=== PATIENT | female | born 1970 | race Caucasian/White ===

== ENCOUNTER 2017-04-29 06:27 | Inpatient (IN) | payer BC ==
[2017-04-29] MEDS ORDERED: Prochlorperazine 10 MG in Sodium Chloride 0.9% 50 ML IV ONE (06:52)
[2017-04-29] MEDS ORDERED: Ketorolac 30 MG/ML SDV IVPUSH ONE (06:52)
[2017-04-29] MEDS ORDERED: Sodium Chloride 0.9% 10 ML Syringe FLUSH PRN (06:52)
[2017-04-29] MEDS ORDERED: LORazepam 2 MG/ML MDV IVPUSH ONE (06:53)
--- NOTE | 2017-04-29 06:59 | EDM.PDOC ---
[id number] Chief Complaint: Abdominal Pain Stated Complaint: ABD PAIN Time Seen by Provider: 04/29/17 06:50 - Related Data Allergies Allergy/AdvReac Type Severity Reaction Status Date / Time No Known Allergies Allergy Verified 04/29/17 06:52 Home Meds: Home Meds *Allergy Med 1 tab PO DAILY 04/29/17 [History] Albuterol [Ventolin HFA] 1 puff .XX ASDIRECTED PRN 04/29/17 [History] Calcium Carbonate [Calcium] 1,200 mg PO DAILY 04/29/17 [History] Cholecalciferol (Vitamin D3) [Vitamin D] 5,000 unit PO DAILY 04/29/17 [History] Cyanocobalamin (Vitamin B-12) [Vitamin B-12] 1 tab SL DAILY 04/29/17 [History] Multivitamin [Multivitamins] 1 tab PO DAILY 04/29/17 [History] [place]-3 Fatty Acids [Fish Oil] 1 tab PO DAILY 04/29/17 [History] Vitamin B Complex [B Complex] 1 each PO DAILY 04/29/17 [History] Course - Vital Signs Last Recorded V/S: Last Vital Signs Temp 37.9 C 04/29/17 15:30 Pulse 111 H 04/29/17 15:30 Resp 17 04/29/17 15:30 BP 123/72 04/29/17 15:30 Pulse Ox 91 L 04/29/17 15:30 - Orders/Labs/Meds Orders: Active Orders 24 hr Category Date Time Status Abdomen Pelvis wo Cont [CT] Stat Exams 04/29/17 07:02 Taken Sodium Chloride 0.9% [Saline Flush] Med 04/29/17 06:52 Active 10 ml FLUSH ASDIRECTED PRN Peripheral IV Insertion Adult [OM.PC] Routine Oth 04/29/17 06:52 Ordered Medication Orders Diphenhydramine HCl (Benadryl) 25 - 50 mg IV Q4H PRN PRN Reason: ITCHING Diphenhydramine HCl (Benadryl) 25 - 50 mg PO Q4H PRN PRN Reason: ITCHING Fentanyl (Sublimaze) 10 - 30 mcg IV Q1H PRN PRN Reason: PAIN Last Admin: 04/29/17 15:21 Dose: 30 mcg Admin: 04/29/17 14:09 Dose: 30 mcg Admin: 04/29/17 12:21 Dose: 30 mcg Admin: 04/29/17 11:05 Dose: 15 mcg Sodium Chloride (Normal Saline) 1,000 mls @ 125 mls/hr IV ASDIRECTED JOYCE Last Admin: 04/29/17 12:21 Dose: 125 mls/hr Morphine Sulfate (Morphine) 1 - 3 mg IV Q1H PRN PRN Reason: PAIN Last Admin: 04/29/17 10:38 Dose: 3 mg Nicotine (Habitrol) 14 mg TRDERM Q24H PRN PRN Reason: SMOKING CESSATION Ondansetron HCl (Zofran) 4 mg IV Q8H PRN PRN Reason: N/V Promethazine HCl (Phenergan) 12.5 - 25 mg IV Q8H PRN PRN Reason: N/V Scopolamine (Transderm-Scop) 1.5 mg TOP Q72H PRN PRN Reason: N/V Sodium Chloride (Saline Flush) 10 ml FLUSH ASDIRECTED PRN PRN Reason: Keep Vein Open Last Admin: 04/29/17 07:01 Dose: 10 ml Labs: Laboratory Tests 04/29/17 04/29/17 Range/Units 06:59 06:59 WBC 16.2 H (4.5-11.0) K/uL RBC 4.81 (3.30-5.50) M/uL Hgb 15.7 H (12.0-15.0) g/dL Hct 46.1 (36.0-48.0) % MCV 96 (80-98) fL MCH 33 H (27-31) pg MCHC 34 (32-36) % Plt Count 286 (150-400) K/uL Sodium 138 L (140-148) mmol/L Potassium 4.2 (3.6-5.2) mmol/L Chloride 104 (100-108) mmol/L Carbon Dioxide 23 (21-32) mmol/L Anion Gap 15.2 H (5.0-14.0) mmol/L BUN 13 (7-18) mg/dL Creatinine 0.8 (0.6-1.0) mg/dL Est Cr Clr Drug Dosing 94.01 mL/min Estimated GFR (MDRD) > 60 (>60) Glucose 174 H (74-106) mg/dL Calcium 9.1 (8.5-10.1) mg/dL Total Bilirubin 0.5 (0.2-1.0) mg/dL AST 25 (15-37) U/L ALT 31 (12-78) U/L Alkaline Phosphatase 127 H (46-116) U/L Total Protein 7.5 (6.4-8.2) g/dL Albumin 3.9 (3.4-5.0) g/dL Globulin 3.6 H (2.3-3.5) g/dL Albumin/Globulin Ratio 1.1 L (1.2-2.2) Lipase 145 (73-393) U/L Meds: Medications Generic Name Dose Route Start Last Admin Trade Name Freq PRN Reason Stop Dose Admin Diphenhydramine HCl 25 - 50 mg 04/29/17 10:37 Benadryl IV Q4H PRN ITCHING Diphenhydramine HCl 25 - 50 mg 04/29/17 10:38 Benadryl PO Q4H PRN ITCHING Fentanyl 10 - 30 mcg 04/29/17 10:39 04/29/17 15:21 Sublimaze IV 30 mcg Q1H PRN Administration PAIN Sodium Chloride 1,000 mls @ 125 mls/hr 04/29/17 10:15 04/29/17 12:21 Normal Saline IV 125 mls/hr ASDIRECTED JOYCE Administration Morphine Sulfate 1 - 3 mg 04/29/17 10:34 04/29/17 10:38 Morphine IV 3 mg Q1H PRN Administration PAIN Nicotine 14 mg 04/29/17 10:38 Habitrol TRDERM Q24H PRN SMOKING CESSATION Ondansetron HCl 4 mg 04/29/17 10:35 Zofran IV Q8H PRN N/V Promethazine HCl 12.5 - 25 mg 04/29/17 10:37 Phenergan IV Q8H PRN N/V Scopolamine 1.5 mg 04/29/17 10:36 Transderm-Scop TOP Q72H PRN N/V Sodium Chloride 10 ml 04/29/17 06:52 04/29/17 07:01 Saline Flush FLUSH 10 ml ASDIRECTED PRN Administration Keep Vein Open Discontinued Medications Generic Name Dose Route Start Last Admin Trade Name Freq PRN Reason Stop Dose Admin Bupivacaine HCl/Epinephrine Bitart Confirm 04/29/17 11:55 04/29/17 12:55 Marcaine 0.5%/Epinephrine 1:200,000 Administered 04/29/17 11:56 20 ml Dose Administration 50 ml .ROUTE .STK-MED ONE Cefazolin Sodium Confirm 04/29/17 17:04 Ancef Administered 04/29/17 17:05 Dose 2 gm .ROUTE .STK-MED ONE Dexamethasone Confirm 04/29/17 13:29 Dexamethasone Administered 04/29/17 13:30 Dose 4 mg .ROUTE .STK-MED ONE Fentanyl Confirm 04/29/17 13:28 Sublimaze Administered 04/29/17 13:29 Dose 250 mcg .ROUTE .STK-MED ONE Fentanyl Confirm 04/29/17 16:52 Sublimaze Administered 04/29/17 16:53 Dose 250 mcg .ROUTE .STK-MED ONE Fentanyl Confirm 04/29/17 18:08 Sublimaze Administered 04/29/17 18:09 Dose 250 mcg .ROUTE .STK-MED ONE Glycopyrrolate Confirm 04/29/17 13:29 Administered 04/29/17 13:30 Dose 1 mg .ROUTE .STK-MED ONE Hydromorphone HCl 0.5 mg 04/29/17 07:11 04/29/17 07:17 Dilaudid IVPUSH 04/29/17 07:12 0.5 mg ONETIME ONE Administration Hydromorphone HCl 0.5 mg 04/29/17 08:08 04/29/17 08:12 Dilaudid IVPUSH 04/29/17 08:09 0.5 mg ONETIME ONE Administration Prochlorperazine Edisylate 10 52 mls @ 150 mls/hr 04/29/17 06:52 04/29/17 07: 02 mg/ Sodium Chloride IV 04/29/17 07:12 150 mls/hr ONETIME ONE Administration Sodium Chloride 1,000 mls @ 250 mls/hr 04/29/17 07:00 04/29/17 07:00 Normal Saline IV 250 mls/hr ASDIRECTED JOYCE Administration Sodium Chloride Confirm 04/29/17 17:04 Normal Saline Administered 04/29/17 17:05 Dose 10 mls @ as directed .ROUTE .STK-MED ONE Lactated Ringer's Confirm 04/29/17 17:15 Ringers, Lactated Administered 04/29/17 17:16 Dose 1,000 mls @ as directed .ROUTE .STK-MED ONE Ketorolac Tromethamine 30 mg 04/29/17 06:52 04/29/17 07:00 Toradol IVPUSH 04/29/17 06:53 30 mg ONETIME ONE Administration Lidocaine HCl Confirm 04/29/17 11:59 04/29/17 12:56 Xylocaine 1% Administered 04/29/17 12:00 20 ml Dose Administration 20 ml .ROUTE .STK-MED ONE Lidocaine/Epinephrine Confirm 04/29/17 11:55 Xylocaine 1% With Epinephrine 1:100,000 Administered 04/29/17 11:56 Dose 50 ml .ROUTE .STK-MED ONE Lorazepam 1 mg 04/29/17 06:53 04/29/17 07:01 Ativan IVPUSH 04/29/17 06:54 1 mg ONETIME ONE Administration Neostigmine Methylsulfate Confirm 04/29/17 13:29 Neostigmine Administered 04/29/17 13:30 Dose 5 mg .ROUTE .STK-MED ONE Ondansetron HCl 4 mg 04/29/17 08:08 04/29/17 11:07 Zofran IVPUSH 04/29/17 08:09 Not Given ONETIME ONE Ondansetron HCl Confirm 04/29/17 13:29 Zofran Administered 04/29/17 13:30 Dose 4 mg .ROUTE .STK-MED ONE Propofol Confirm 04/29/17 13:29 Diprivan 20 Ml Administered 04/29/17 13:30 Dose 200 mg .ROUTE .STK-MED ONE Rocuronium [place] Confirm 04/29/17 13:29 Zemuron Administered 04/29/17 13:30 Dose 50 mg .ROUTE .STK-MED ONE Rocuronium [place] Confirm 04/29/17 18:05 Zemuron Administered 04/29/17 18:06 Dose 50 mg .ROUTE .STK-MED ONE Succinylcholine Chloride Confirm 04/29/17 13:29 Succinylcholine In Ns Pf Administered 04/29/17 13:30 Dose 200 mg .ROUTE .STK-MED ONE - Re-Assessments/Exams Free Text/Narrative Re-Assessment/Exam: 04/29/17 08:10 CT scan showed likely cholecystitis, white count is 16.2 and alkaline phosphatase is elevated at 175. Reexamination revealed right upper quadrant tenderness to palpation. Discussed her condition with Dr. Strong, surgeon on -call and he agreed to see the patient. 04/29/17 08:11 2 doses of Dilaudid 0.5 mg IV were given 30 minutes apart for pain control. She was also given 4 mg of Zofran IV. Departure - Departure Time of Disposition: 10:18 Disposition: Admitted As Inpatient 66 Condition: Fair Clinical Impression: Cholecystitis Abdominal pain Qualifiers: Abdominal location: generalized Qualified Code(s): R10.84 - Generalized abdominal pain - Discharge Information - My Orders Last 24 Hours: My Active Orders 04/29/17 06:52 Sodium Chloride 0.9% [Saline Flush] 10 ml FLUSH ASDIRECTED PRN Peripheral IV Insertion Adult [OM.PC] Routine - Assessment/Plan Last 24 Hours: My Active Orders 04/29/17 06:52 Sodium Chloride 0.9% [Saline Flush] 10 ml FLUSH ASDIRECTED PRN Peripheral IV Insertion Adult [OM.PC] Routine <Dagoberto Atkinson - Last Filed: 04/29/17 18:14> ED HPI GENERAL MEDICAL PROBLEM - General Source of Information: Reports: Patient, Old Records, RN Notes Reviewed History Limitations: Reports: Other (Severity of illness makes history taking difficult) - History of Present Illness INITIAL COMMENTS - FREE TEXT/NARRATIVE: Drove herself here Chief complaint: Right lower abdominal pain History of present illness: 47-year-old female, lives with her , history of gastric bypass 2002, abdominal hernia repair with mesh, and bowel obstruction treated by surgery. She's also passed renal stone spontaneously. Onset of pain sharp right lower abdomen with radiation to the back, 4 AM woke her up. Last bowel movement last night normal visualized genitourinary symptoms Bloating present as well as nausea, no vomiting yet. No fever No recent illnesses No recent medicine changes RLQ Pain Score (Numeric/FACES): 9 ED ROS GENERAL - Review of Systems Review Of Systems: See Below Constitutional: Reports: Other (Limited review of system due to physical distress, sleep disturbance) HEENT: Reports: No Symptoms Respiratory: Reports: Other (Pain makes her short of breath, deep breath aggravates the pain in her abdomen) Cardiovascular: Reports: No Symptoms Endocrine: Reports: No Symptoms GI/Abdominal: Reports: Abdominal Pain, Nausea. Denies: Constipation, Diarrhea, Vomiting : Reports: No Symptoms Musculoskeletal: Reports: No Symptoms Skin: Reports: No Symptoms Neurological: Reports: No Symptoms Psychiatric: Reports: Anxiety (Sleep disturbance) Hematologic/Lymphatic: Reports: No Symptoms Immunologic: Reports: No Symptoms ED EXAM, GI/ABD - Physical Exam Exam: See Below Exam Limited By: No Limitations General Appearance: Anxious, Severe Distress, Other (Very restless uncomfortable unable to sit stillElevated respiratory rate, other vital signs normal, grunting with pain and with breathing) Eyes: Bilateral: Normal Appearance Ears: Normal External Exam, Normal Canal, Hearing Grossly Normal Nose: Normal Inspection Throat/Mouth: Normal Inspection, Normal Oropharynx Head: Atraumatic, Normocephalic Neck: Normal Inspection, Non-Tender Respiratory/Chest: Other (Shallow breath sounds, increased rate, grunting). No : Rales, Rhonchi Cardiovascular: Normal Peripheral Pulses, Regular Rate, Rhythm GI/Abdominal: Normal Bowel Sounds, Soft, Tenderness (Right lower quadrant), Other (Obesity limits quality of examination). No: Guarding, Rebound, Rigidity Back Exam: Normal Inspection Extremities: Normal Inspection. No: Pedal Edema Neurological: Alert, Normal Cognition, Normal Gait Psychiatric: Anxious, Other (In considerable discomfort) Skin Exam: Warm, Dry, Intact, Normal Color, No Rash Lymphatic: No Adenopathy Course - Orders/Labs/Meds Labs: Laboratory Tests 04/29/17 04/29/17 Range/Units 06:59 06:59 WBC 16.2 H (4.5-11.0) K/uL RBC 4.81 (3.30-5.50) M/uL Hgb 15.7 H (12.0-15.0) g/dL Hct 46.1 (36.0-48.0) % MCV 96 (80-98) fL MCH 33 H (27-31) pg MCHC 34 (32-36) % Plt Count 286 (150-400) K/uL Sodium 138 L (140-148) mmol/L Potassium 4.2 (3.6-5.2) mmol/L Chloride 104 (100-108) mmol/L Carbon Dioxide 23 (21-32) mmol/L Anion Gap 15.2 H (5.0-14.0) mmol/L BUN 13 (7-18) mg/dL Creatinine 0.8 (0.6-1.0) mg/dL Est Cr Clr Drug Dosing 94.01 mL/min Estimated GFR (MDRD) > 60 (>60) Glucose 174 H (74-106) mg/dL Calcium 9.1 (8.5-10.1) mg/dL Total Bilirubin 0.5 (0.2-1.0) mg/dL AST 25 (15-37) U/L ALT 31 (12-78) U/L Alkaline Phosphatase 127 H (46-116) U/L Total Protein 7.5 (6.4-8.2) g/dL Albumin 3.9 (3.4-5.0) g/dL Globulin 3.6 H (2.3-3.5) g/dL Albumin/Globulin Ratio 1.1 L (1.2-2.2) Lipase 145 (73-393) U/L Meds: Medications Generic Name Dose Route Start Last Admin Trade Name Freq PRN Reason Stop Dose Admin Diphenhydramine HCl 25 - 50 mg 04/29/17 10:37 Benadryl IV Q4H PRN ITCHING Diphenhydramine HCl 25 - 50 mg 04/29/17 10:38 Benadryl PO Q4H PRN ITCHING Fentanyl 10 - 30 mcg 04/29/17 10:39 04/29/17 15:21 Sublimaze IV 30 mcg Q1H PRN Administration PAIN Sodium Chloride 1,000 mls @ 125 mls/hr 04/29/17 10:15 04/29/17 12:21 Normal Saline IV 125 mls/hr ASDIRECTED JOYCE Administration Morphine Sulfate 1 - 3 mg 04/29/17 10:34 04/29/17 10:38 Morphine IV 3 mg Q1H PRN Administration PAIN Nicotine 14 mg 04/29/17 10:38 Habitrol TRDERM Q24H PRN SMOKING CESSATION Ondansetron HCl 4 mg 04/29/17 10:35 Zofran IV Q8H PRN N/V Promethazine HCl 12.5 - 25 mg 04/29/17 10:37 Phenergan IV Q8H PRN N/V Scopolamine 1.5 mg 04/29/17 10:36 Transderm-Scop TOP Q72H PRN N/V Sodium Chloride 10 ml 04/29/17 06:52 04/29/17 07:01 Saline Flush FLUSH 10 ml ASDIRECTED PRN Administration Keep Vein Open Discontinued Medications Generic Name Dose Route Start Last Admin Trade Name Bisi PRN Reason Stop Dose Admin Bupivacaine HCl/Epinephrine Bitart Confirm 04/29/17 11:55 04/29/17 12:55 Marcaine 0.5%/Epinephrine 1:200,000 Administered 04/29/17 11:56 20 ml Dose Administration 50 ml .ROUTE .STK-MED ONE Cefazolin Sodium Confirm 04/29/17 17:04 Ancef Administered 04/29/17 17:05 Dose 2 gm .ROUTE .STK-MED ONE Dexamethasone Confirm 04/29/17 13:29 Dexamethasone Administered 04/29/17 13:30 Dose 4 mg .ROUTE .STK-MED ONE Fentanyl Confirm 04/29/17 13:28 Sublimaze Administered 04/29/17 13:29 Dose 250 mcg .ROUTE .STK-MED ONE Fentanyl Confirm 04/29/17 16:52 Sublimaze Administered 04/29/17 16:53 Dose 250 mcg .ROUTE .STK-MED ONE Fentanyl Confirm 04/29/17 18:08 Sublimaze Administered 04/29/17 18:09 Dose 250 mcg .ROUTE .STK-MED ONE Glycopyrrolate Confirm 04/29/17 13:29 Administered 04/29/17 13:30 Dose 1 mg .ROUTE .STK-MED ONE Hydromorphone HCl 0.5 mg 04/29/17 07:11 04/29/17 07:17 Dilaudid IVPUSH 04/29/17 07:12 0.5 mg ONETIME ONE Administration Hydromorphone HCl 0.5 mg 04/29/17 08:08 04/29/17 08:12 Dilaudid IVPUSH 04/29/17 08:09 0.5 mg ONETIME ONE Administration Prochlorperazine Edisylate 10 52 mls @ 150 mls/hr 04/29/17 06:52 04/29/17 07: 02 mg/ Sodium Chloride IV 04/29/17 07:12 150 mls/hr ONETIME ONE Administration Sodium Chloride 1,000 mls @ 250 mls/hr 04/29/17 07:00 04/29/17 07:00 Normal Saline IV 250 mls/hr ASDIRECTED JOYCE Administration Sodium Chloride Confirm 06/13/17 17:04 Normal Saline Administered 04/29/17 17:05 Dose 10 mls @ as directed .ROUTE .STK-MED ONE Lactated Ringer's Confirm 04/29/17 17:15 Ringers, Lactated Administered 04/29/17 17:16 Dose 1,000 mls @ as directed .ROUTE .STK-MED ONE Ketorolac Tromethamine 30 mg 04/29/17 06:52 04/29/17 07:00 Toradol IVPUSH 04/29/17 06:53 30 mg ONETIME ONE Administration Lidocaine HCl Confirm 04/29/17 11:59 04/29/17 12:56 Xylocaine 1% Administered 04/29/17 12:00 20 ml Dose Administration 20 ml .ROUTE .STK-MED ONE Lidocaine/Epinephrine Confirm 04/29/17 11:55 Xylocaine 1% With Epinephrine 1:100,000 Administered 04/29/17 11:56 Dose 50 ml .ROUTE .STK-MED ONE Lorazepam 1 mg 04/29/17 06:53 04/29/17 07:01 Ativan IVPUSH 04/29/17 06:54 1 mg ONETIME ONE Administration Neostigmine Methylsulfate Confirm 04/29/17 13:29 Neostigmine Administered 04/29/17 13:30 Dose 5 mg .ROUTE .STK-MED ONE Ondansetron HCl 4 mg 04/29/17 08:08 04/29/17 11:07 Zofran IVPUSH 04/29/17 08:09 Not Given ONETIME ONE Ondansetron HCl Confirm 04/29/17 13:29 Zofran Administered 04/29/17 13:30 Dose 4 mg .ROUTE .STK-MED ONE Propofol Confirm 04/29/17 13:29 Diprivan 20 Ml Administered 04/29/17 13:30 Dose 200 mg .ROUTE .STK-MED ONE Rocuronium [place] Confirm 04/29/17 13:29 Zemuron Administered 04/29/17 13:30 Dose 50 mg .ROUTE .STK-MED ONE Rocuronium [place] Confirm 04/29/17 18:05 Zemuron Administered 04/29/17 18:06 Dose 50 mg .ROUTE .STK-MED ONE Succinylcholine Chloride Confirm 04/29/17 13:29 Succinylcholine In Ns Pf Administered 04/29/17 13:30 Dose 200 mg .ROUTE .STK-MED ONE - Re-Assessments/Exams Free Text/Narrative Re-Assessment/Exam: 04/29/17 06:58 47-year-old female with acute right lower quadrant pain with radiation to the back. Restless with the pain Differential diagnosis includes renal colic, appendicitis, gastritis, bowel obstruction. Labs ordered, saline IV, Compazine 10 mg and Toradol 30 mg and lorazepam 1 mg IV Transferred to care of Dr. Jones pending results and disposition and response to treatment 04/29/17 18:12
[2017-04-29] MEDS ORDERED: Sodium Chloride 0.9% 1,000 ML IV SCH (07:00)
[2017-04-29] MEDS ORDERED: HYDROmorphone 0.5 MG/0.5 ML Syringe IVPUSH ONE ×2 (07:11→08:08)
[2017-04-29] MEDS ORDERED: Ondansetron 4 MG/2 ML SDV IVPUSH ONE (08:08)
[2017-04-29] MEDS ORDERED: Morphine 2 MG/ML Syringe IV PRN (10:34)
[2017-04-29] MEDS ORDERED: Ondansetron 4 MG/2 ML SDV IV PRN (10:35)
[2017-04-29] MEDS ORDERED: Scopolamine 1.5 MG Transdermal Patch TOP PRN (10:36)
[2017-04-29] MEDS ORDERED: Promethazine 25 MG/ML SDV IV PRN (10:37)
[2017-04-29] MEDS ORDERED: diphenhydrAMINE 50 MG/ML SDV IV PRN (10:37)
--- NOTE | 2017-04-29 10:37 | CONS ---
DATE OF SERVICE: 04/29/2017 REFERRING PHYSICIAN: CONSULTING PHYSICIAN: Tomi Strong MD This is a consult from Dr. Jones. REASON FOR CONSULTATION: Abdominal pain. HISTORY OF PRESENT ILLNESS: A 47-year-old female with right upper quadrant abdominal pain. This has been present since fall, but had a recent attack. This is associated with mild nausea. The patient had gastric bypass and does not eat greasy or fatty foods, reportedly. PAST SURGICAL HISTORY: Open Armen-en-Y, small bowel obstruction, and subsequent hernia repair. PAST MEDICAL HISTORY: None. SOCIAL HISTORY: She does not smoke. She drinks occasional alcoholic beverages per week. FAMILY HISTORY: Noncontributory. REVIEW OF SYSTEMS: GENERAL: The patient is doing well. HEENT: No symptoms. CARDIOVASCULAR: No history of myocardial infarction. RESPIRATORY: No history of shortness of breath. GI: Gastric bypass. NEUROLOGIC: No symptoms. PSYCH: No gross changes. The remainder of review of systems reviewed and negative. PHYSICAL EXAMINATION: VITAL SIGNS: Stable. HEENT: Pupils are equal, round, and reactive to light. NECK: Supple. LUNGS: Clear. CARDIOVASCULAR: Regular rhythm and rate. ABDOMEN: Pain with palpation at right upper quadrant. EXTREMITIES: Full range of motion. NEUROLOGIC: Alert and oriented x3. PSYCH: No gross depression. IMAGING: I did review a CT scan, which showed cholecystitis. LABORATORY DATA: Laboratory results show a normal bilirubin. ASSESSMENT: Cholecystitis. PLAN: The patient will undergo laparoscopic cholecystectomy. We discussed risks, benefits, alternatives, and limitations including, but not limited to infection, bleeding, and other risks. We also discussed common bile duct injury and cystic duct leaks. We also discussed the higher risk of her surgery due to her Armen-en-Y, small bowel obstruction, and hernia issues concerning for injury to the small bowel. We also discussed that if a common bile duct injury does occur, that the patient will require a significant extensive surgery and explained the complications associated with this due to her Armen-en-Y history. The patient understands these risks and wishes to proceed. Tomi Strong MD /[id number]
[2017-04-29] MEDS ORDERED: diphenhydrAMINE 25 MG Cap PO PRN (10:38)
[2017-04-29] MEDS ORDERED: Nicotine 14 MG/24 Hr Patch TRDERM PRN (10:38)
[2017-04-29] MEDS: fentaNYL 100 MCG/2 ML SDV IV PRN ×4 (11:05→15:21)
[2017-04-29] MEDS ORDERED: Lidocaine 1% with EPINEPHrine 1:100,000 50 ML MDV ONE (11:55)
[2017-04-29] MEDS: Sodium Chloride 0.9% 1,000 ML IV SCH ×2 (12:21→22:39)
[2017-04-29] MEDS: Bupivacaine 0.5%/EPINEPHrine 1:200,000 50 ML MDV ONE ×2 (12:55→19:13)
[2017-04-29] MEDS: Lidocaine 1% 20 ML MDV ONE ×2 (12:56→19:13)
[2017-04-29] MEDS ORDERED: fentaNYL 250 MCG/5 ML SDV ONE ×3 (13:28→18:08)
[2017-04-29] MEDS ORDERED: Neostigmine Methylsulfate 1 MG/ML 5 ML Syringe ONE (13:29)
[2017-04-29] MEDS ORDERED: Succinylcholine/Normal Saline 200 MG/10 ML Syringe ONE (13:29)
[2017-04-29] MEDS ORDERED: Propofol 200 MG/20 ML SDV ONE (13:29)
[2017-04-29] MEDS ORDERED: Dexamethasone 4 MG/ML SDV ONE (13:29)
[2017-04-29] MEDS ORDERED: Ondansetron 4 MG/2 ML SDV ONE (13:29)
[2017-04-29] MEDS ORDERED: Rocuronium 50 MG/5 ML Vial ONE ×2 (13:29→18:05)
[2017-04-29] MEDS ORDERED: ceFAZolin 1 GM Vial ONE (17:04)
[2017-04-29] MEDS ORDERED: Sodium Chloride 0.9% 10 ML ONE (17:04)
[2017-04-29] MEDS ORDERED: Lactated Ringers 1,000 ML ONE ×2 (17:15→18:51)
[2017-04-29] MEDS ORDERED: Labetalol 20 MG/4 ML Syringe ONE (18:21)
[2017-04-29] MEDS ORDERED: Naloxone 0.4 MG/ML SDV IV PRN (21:18)
[2017-04-29] MEDS ORDERED: fentaNYL/Normal Saline 600 MCG/30 ML PCA Vial IV PRN (21:18)
[2017-04-30] MEDS: Sodium Chloride 0.9% 1,000 ML IV SCH (05:02)
--- NOTE | 2017-04-30 08:04 | OR ---
DATE OF PROCEDURE: 04/29/2017 PROCEDURES PERFORMED: 1. Laparoscopic cholecystectomy. 2. Extensive lysis of adhesions. 3. Modifier 22 due to complex procedure. FINDINGS: 1. Very dense adhesions of the small bowel with complete adherence of omentum, small bowel, and colon around the gallbladder and the liver. 2. Adhesions of bowel to ventral hernia. 3. Significantly inflamed gallbladder. COMPLICATIONS: None. AUDIOLOGY ASSISTANT: None. INDICATIONS: A 47-year-old female with right upper quadrant pain was diagnosed with cholelithiasis and cholecystitis. Risks, benefits, alternatives, and limitations, including, but not limited to infection, bleeding, and perforation were explained the patient. We also discussed due to her extensive history of complex abdominal surgery, she is at high risk for injury to bowel during this procedure. We also discussed that she is also at high risk of cystic duct leaks, common bile duct injury, and if these occur, they are a serious problem due to her Armen-en-Y history. We also discussed the possibility of open surgery, cardiovascular issues, postoperatively infection requirement for reoperation, and other risks not listed here. The patient understands these risks and her alternatives and wishes to proceed. PROCEDURE IN DETAIL: The patient was placed in supine position. Due to the extensive abdominal history and multiple adhesions, there is concern the patient has midline bowel adhered to her hernia mesh. Therefore, a Veress needle was used 2 cm in the midline in the upper abdomen to access the abdomen. The abdomen was subsequently insufflated and an Optiview trocar was placed in the right upper abdomen. This was noted to have a small bowel and a midline entry would have definitively perforated the bowel. Nonetheless, this did not happen due to the alternative entry point. Over the course of the next 2 hours, lysis of adhesions would be performed. The Armen-en-Y limb was noted to be adhered along the ventral hernia and other loops of ileum would be completely encasing the gallbladder. This was very significant and a very sick gallbladder with inflammation associated with this. As dissection continued, the gallbladder itself was tucked deep within the liver fossa itself. Over these 2 hours, lysis of adhesions again was performed using sharp and blunt dissection. No bowel was interacted with any energy source and no evidence of enterotomy was noted. The gallbladder was eventually dissected down to the infundibulum and was able to be transected with a blue load stapler. This was performed due to the dense adhesions in the distal last 10% of the gallbladder and there was concern for possible injury to the common bile duct. Over the next 30 minutes, bleeding was controlled by electrocautery. The abdomen was irrigated and checked for any ongoing bleeding, which was controlled. Three Jonathan-Phillips drains were placed, 2 in the gallbladder fossa and 1 left abdomen right over the mesh dissection area. The air was removed. The wounds were closed with 3-0 Vicryl and 4-0 Vicryl in interrupted fashion after thorough irrigation and local anesthetic. The patient tolerated the procedure well. Tomi Strong MD /[id number]
[2017-04-30] MEDS ORDERED: Morphine 2 MG/ML Syringe IVPUSH PRN (08:23)
[2017-04-30] MEDS: Acetaminophen/HYDROcodone 325-5 MG Tab PO PRN ×2 (09:10→13:20)
[2017-04-30 13:20] VITALS: BP 138/89
--- NOTE | 2017-05-06 17:40 | DISCH ---
DISCHARGE DIAGNOSIS: Laparoscopic cholecystectomy, lysis of adhesions. HOSPITAL COURSE: A pleasant 47-year-old female with right upper quadrant abdominal pain, subsequently diagnosed with cholelithiasis and cholecystitis. The patient was requiring laparoscopic cholecystectomy. As far as gallbladder is concerned, the patient had a hydrops gallbladder which was also noted to have extensive adhesions of small bowel and the Armen-en- Y limb to the abdominal wall. This 1st required extensive and complicated laparoscopic surgery. However, prior to discharge, her pain was well controlled. She had no nausea, vomiting, shortness of breath, or chest pain. She does have multiple drains, which we will leave in at this time as fistula, hematoma, biloma, etc., are always concern, therefore this allows to manage and monitor this.
== END 2017-04-30 13:39 | disposition home or self-care (01) | DRG 263 ==
LOC: JP.ED 06:27 → JP.MS 09:59
PROVIDERS: ADMIT Surgery; ATTEND Surgery
PROC: 0DN84ZZ Release Small Intestine, Percutaneous Endoscopic Approach (ICD-10-PCS; principal; 2017-04-29)
PROC: 0DNE4ZZ Release Large Intestine, Percutaneous Endoscopic Approach (ICD-10-PCS; principal; 2017-04-29)
PROC: 0DNT4ZZ (ICD-10-PCS; principal; 2017-04-29)
PROC: 0FT44ZZ Resection of Gallbladder, Percutaneous Endoscopic Approach (ICD-10-PCS; principal; 2017-04-29)
PROC: 0DNB4ZZ Release Ileum, Percutaneous Endoscopic Approach (ICD-10-PCS; principal; 2017-04-29)
DX: K80.10 Calculus of gallbladder with chronic cholecystitis without obstruction (principal); K66.0 Peritoneal adhesions (postprocedural) (postinfection); Z98.84 Bariatric surgery status; Z98.0 Intestinal bypass and anastomosis status; K43.9 Ventral hernia without obstruction or gangrene
CPT/HCPCS: 36415; 74176; 80053; 83690; 85018; 85025; 85027; 86850; 86900; 86901; 88304; 94762; 96361; 96365; 96375; 96376; 99285-25; A9270-GY; J0690; J0780; J1100; J1170; J1885; J2060; J2270; J2405; J2704; J3010; J7040; J7050; J7120

== ENCOUNTER 2017-05-10 19:28 | Emergency (ER) | payer BC ==
[2017-05-10] MEDS ORDERED: Sodium Chloride 0.9% 10 ML Syringe FLUSH PRN ×2 (21:19→22:13)
[2017-05-10] MEDS ORDERED: Iopamidol 612 MG/ML 150 ML Bottle IV SCH (22:15)
[2017-05-10 23:20] VITALS: BP 122/68
--- NOTE | 2017-05-11 00:09 | EDM.PDOC ---
ED HPI GENERAL MEDICAL PROBLEM - General Chief Complaint: General Stated Complaint: surgery 13 / infection Time Seen by Provider: 05/10/17 20:10 Source of Information: Reports: Patient History Limitations: Reports: No Limitations - History of Present Illness INITIAL COMMENTS - FREE TEXT/NARRATIVE: This patient is having some problems with her Jonathan-Phillips drains. She had a cholecystectomy on April 29. There were a number of adhesions and it was thought that something might have gotten perforated. She was put on Augmentin on May [address] was done. The patient said that over the last 24 hours drain #1 seems to have taken on the thecal odor. Drain #3 continues to drain some yellowish green fluid and there is a little bit discharging around the tube itself. #2 is generally unchanged. #3 she said has been greenish for about one week she was seen last Friday. Her temp is increased about one half a degree today. She says she has some low-grade fevers every day. She finished Augmentin today. She took it for 5 days. She denies any pain. She's having normal bowel movements she is voiding normally she doesn't have much of an appetite but she takes liquids without any problem. - Related Data Allergies Allergy/AdvReac Type Severity Reaction Status Date / Time No Known Allergies Allergy Verified 05/10/17 19:56 Home Meds: Home Meds *Allergy Med 1 tab PO DAILY 04/29/17 [History] Albuterol [Ventolin HFA] 1 puff .XX ASDIRECTED PRN 04/29/17 [History] Calcium Carbonate [Calcium] 1,200 mg PO DAILY 04/29/17 [History] Cholecalciferol (Vitamin D3) [Vitamin D] 5,000 unit PO DAILY 04/29/17 [History] Cyanocobalamin (Vitamin B-12) [Vitamin B-12] 1 tab SL DAILY 04/29/17 [History] Multivitamin [Multivitamins] 1 tab PO DAILY 04/29/17 [History] [place]-3 Fatty Acids [Fish Oil] 1 tab PO DAILY 04/29/17 [History] Vitamin B Complex [B Complex] 1 each PO DAILY 04/29/17 [History] Past Medical History HEENT History: Reports: Allergic Rhinitis, Impaired Vision Respiratory History: Reports: Asthma Genitourinary History: Reports: Renal Calculus, UTI, 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: 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, Endocrine/Metabolic History: Reports: Diabetes, Gestational, Obesity/BMI 30+ Hematologic History: Reports: Anemia, B12 Deficiency, Blood Transfusion(s) - Infectious Disease History Infectious Disease History: Reports: Chicken Pox - Past Surgical History HEENT Surgical History: Reports: Naso-Sinus Surgery GI Surgical History: Reports: Bariatric Procedure, Cholecystectomy, EGD, Hernia Repair/Other, Other (See Below) Other GI Surgeries/Procedures: bowel blockage Female Surgical History: Reports: Endometrial Ablation Social & Family History - Tobacco Use Smoking Status *Q: Never Smoker - Caffeine Use Caffeine Use: Reports: None - Alcohol Use Days Per Week of Alcohol Use: 1 Number of Drinks Per Day: 2 Total Drinks Per Week: 2 - Recreational Drug Use Recreational Drug Use: No ED ROS GENERAL - Review of Systems Review Of Systems: See Below Constitutional: Reports: Fever (As per history of present illness) HEENT: Reports: No Symptoms Respiratory: Reports: No Symptoms Cardiovascular: Reports: No Symptoms Endocrine: Reports: No Symptoms GI/Abdominal: Reports: Other (See history of present illness) : Reports: No Symptoms ED EXAM, GENERAL - Physical Exam Exam: See Below Exam Limited By: No Limitations General Appearance: Alert, No Apparent Distress, Obese Eye Exam: Bilateral Eye: Normal Inspection Throat/Mouth: Normal Inspection Respiratory/Chest: Lungs Clear Cardiovascular: Regular Rate, Rhythm GI/Abdominal: Other (Abdomen is soft and nontender. There are 3 Jonathan Phillips drains in the abdomen #1 in the right upper quadrant is draining some thin reddish fluid she said that has taken on a fecal odor lately. The one in the center also has some thin reddish fluid. The one on the left #3 is draining light yellowish fluid with slight greenish tent to it. There also getting a small amount of drainage around the tube. There is no erythema.) Extremities: Normal Inspection Psychiatric: Normal Affect Skin Exam: Warm, Dry Course - Vital Signs Last Recorded V/S: Last Vital Signs Temp 38.3 C H 05/10/17 20:08 Pulse 87 05/10/17 23:18 Resp 18 05/10/17 23:18 BP 122/68 05/10/17 23:18 Pulse Ox 95 05/10/17 23:18 - Orders/Labs/Meds Orders: Active Orders 24 hr Category Date Time Status Abdomen Pelvis w Cont [CT] Stat Exams 05/10/17 21:19 Taken Iopamidol [Isovue-300 (61%)] Med 05/10/17 22:15 Active 150 ml IV . DIRECTED Sodium Chloride 0.9% [Saline Flush] Med 05/10/17 21:19 Active 10 ml FLUSH ASDIRECTED PRN Sodium Chloride 0.9% [Saline Flush] Med 05/10/17 22:13 Active 10 ml FLUSH ONETIME PRN Saline Lock Insert [OM.PC] Urgent Oth 05/10/17 21:19 Ordered Medication Orders Iopamidol (Isovue-300 (61%)) 150 ml IV . DIRECTED JOYCE Last Admin: 05/10/17 22:26 Dose: 150 ml Sodium Chloride (Saline Flush) 10 ml FLUSH ASDIRECTED PRN PRN Reason: Keep Vein Open Last Admin: 05/10/17 21:45 Dose: 10 ml Sodium Chloride (Saline Flush) 10 ml FLUSH ONETIME PRN PRN Reason: PER RADIOLOGY PROTOCOL Last Admin: 05/10/17 22:26 Dose: 10 ml Labs: Laboratory Tests 05/10/17 05/10/17 Range/Units 21:19 21:19 WBC 9.6 (4.5-11.0) K/uL RBC 3.77 (3.30-5.50) M/uL Hgb 12.2 (12.0-15.0) g/dL Hct 36.9 (36.0-48.0) % MCV 98 (80-98) fL MCH 32 H (27-31) pg MCHC 33 (32-36) % Plt Count 423 H (150-400) K/uL Neut % (Auto) 75 H (36-66) % Lymph % (Auto) 16 L (24-44) % [place] % (Auto) 6 (2-6) % Eos % (Auto) 3 (2-4) % Baso % (Auto) 1 (0-1) % Sodium 137 L (140-148) mmol/L Potassium 4.1 (3.6-5.2) mmol/L Chloride 101 (100-108) mmol/L Carbon Dioxide 27 (21-32) mmol/L Anion Gap 13.1 (5.0-14.0) mmol/L BUN 12 (7-18) mg/dL Creatinine 0.7 (0.6-1.0) mg/dL Est Cr Clr Drug Dosing 107.44 mL/min Estimated GFR (MDRD) > 60 (>60) Glucose 110 H (74-106) mg/dL Calcium 8.8 (8.5-10.1) mg/dL Total Bilirubin 0.4 (0.2-1.0) mg/dL AST 24 (15-37) U/L ALT 29 (12-78) U/L Alkaline Phosphatase 125 H (46-116) U/L Total Protein 7.0 (6.4-8.2) g/dL Albumin 2.7 L (3.4-5.0) g/dL Globulin 4.3 H (2.3-3.5) g/dL Albumin/Globulin Ratio 0.6 L (1.2-2.2) Meds: Medications Generic Name Dose Route Start Last Admin Trade Name Freq PRN Reason Stop Dose Admin Iopamidol 150 ml 05/10/17 22:15 05/10/17 22:26 Isovue-300 (61%) IV 150 ml . DIRECTED JOYCE Administration Sodium Chloride 10 ml 05/10/17 21:19 05/10/17 21:45 Saline Flush FLUSH 10 ml ASDIRECTED PRN Administration Keep Vein Open Sodium Chloride 10 ml 05/10/17 22:13 05/10/17 22:26 Saline Flush FLUSH 10 ml ONETIME PRN Administration PER RADIOLOGY PROTOCOL Discontinued Medications Generic Name Dose Route Start Last Admin Trade Name Freq PRN Reason Stop Dose Admin Sodium Chloride 85 mls @ 3 mls/sec 05/10/17 22:13 05/10/17 22:26 Normal Saline IV 05/10/17 22:14 3 mls/sec ONETIME ONE Administration - Radiology Interpretation Free Text/Narrative:: Abdominal CT showed a minimal increase in the volume of the partially loculated fluid around the surgical drains in the anterior upper abdomen since 05/04/17. No drainable collections. A small amount of free intraperitoneal gas decreased from prior. No bile duct dilatation. - Re-Assessments/Exams Free Text/Narrative Re-Assessment/Exam: 05/11/17 00:09 the patient initially had a low-grade fever but that is come down without any treatment. Her white blood cell count is unremarkable. She has a follow-up appointment on Friday with Dr. Strong. I'll continue her on Augmentin for another 5 days. Departure - Departure Time of Disposition: 00:10 Disposition: Home, Self-Care 01 Condition: Fair Clinical Impression: Surgical complication - Discharge Information Forms: ED Department Discharge Additional Instructions: There doesn't appear to be any sign of infection or abscess. There is just a slight increase in the fluid collections. Your white blood cell count was normal. Continue taking Augmentin 875 mg twice daily until you see Dr. Strong on Friday. If you have any worsening of symptoms then returned to the ER or contact Dr. Strong - My Orders Last 24 Hours: My Active Orders 05/10/17 21:19 Abdomen Pelvis w Cont [CT] Stat Sodium Chloride 0.9% [Saline Flush] 10 ml FLUSH ASDIRECTED PRN Saline Lock Insert [OM.PC] Urgent 05/10/17 22:13 Sodium Chloride 0.9% [Saline Flush] 10 ml FLUSH ONETIME PRN 05/10/17 22:15 Iopamidol [Isovue-300 (61%)] 150 ml IV . DIRECTED - Assessment/Plan Last 24 Hours: My Active Orders 05/10/17 21:19 Abdomen Pelvis w Cont [CT] Stat Sodium Chloride 0.9% [Saline Flush] 10 ml FLUSH ASDIRECTED PRN Saline Lock Insert [OM.PC] Urgent 05/10/17 22:13 Sodium Chloride 0.9% [Saline Flush] 10 ml FLUSH ONETIME PRN 05/10/17 22:15 Iopamidol [Isovue-300 (61%)] 150 ml IV . DIRECTED
== END 2017-05-11 00:45 | disposition home or self-care (01) ==
LOC: JP.ED 19:28
DX: K91.89 Other postprocedural complications and disorders of digestive system (principal); R50.9 Fever, unspecified; H54.7 Unspecified visual loss; Z87.440 Personal history of urinary (tract) infections; J45.909 Unspecified asthma, uncomplicated; E66.9 Obesity, unspecified; D64.9 Anemia, unspecified; Z98.890 Other specified postprocedural states; Z90.49 Acquired absence of other specified parts of digestive tract; Z98.84 Bariatric surgery status; Z79.899 Other long term (current) drug therapy
CPT/HCPCS: 36415; 74177; 80053; 85025; 99284; J7030; J7050

== ENCOUNTER 2018-04-12 18:33 | Emergency (ER) | payer BC ==
[2018-04-12] MEDS ORDERED: Acetaminophen 325 MG Tab PO ONE ×2 (19:22→22:53)
--- NOTE | 2018-04-12 19:24 | EDM.PDOC ---
ED HPI GENERAL MEDICAL PROBLEM - General Chief Complaint: Fever Stated Complaint: HERNIA SURGERY COMPLICATIONS Time Seen by Provider: 04/12/18 19:14 Source of Information: Reports: Patient, Family, RN Notes Reviewed History Limitations: Reports: No Limitations - History of Present Illness INITIAL COMMENTS - FREE TEXT/NARRATIVE: 48-year-old female presents to the emergency department with a complaint of fever and abdominal pain, she has a complicated abdominal history of multiple surgeries over the last year recently underwent mesh removal in 10 days prior. States he is doing well then today possibly 5 hours ago developed fever and increasing abdominal pain, she does have nausea no shortness of breath or chest pain regular bowel movements Abdominal Pain Score (Numeric/FACES): 3 - Related Data Allergies Allergy/AdvReac Type Severity Reaction Status Date / Time No Known Allergies Allergy Verified 04/12/18 18:55 Home Meds: Home Meds *Allergy Med 1 tab PO DAILY 04/29/17 [History] Albuterol [Ventolin HFA] 1 puff .XX ASDIRECTED PRN 04/29/17 [History] Calcium Carbonate [Calcium] 1,200 mg PO DAILY 04/29/17 [History] Cholecalciferol (Vitamin D3) [Vitamin D] 5,000 unit PO DAILY 04/29/17 [History] Cyanocobalamin (Vitamin B-12) [Vitamin B-12] 1 tab SL DAILY 04/29/17 [History] Multivitamin [Multivitamins] 1 tab PO DAILY 04/29/17 [History] [place]-3 Fatty Acids [Fish Oil] 1 tab PO DAILY 04/29/17 [History] Vitamin B Complex [B Complex] 1 each PO DAILY 04/29/17 [History] oxyCODONE 5 mg PO ASDIRECTED PRN 04/12/18 [History] Past Medical History HEENT History: Reports: Allergic Rhinitis, Impaired Vision Respiratory History: Reports: Asthma Genitourinary History: Reports: Renal Calculus, UTI, 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: 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, Endocrine/Metabolic History: Reports: Diabetes, Gestational, Obesity/BMI 30+ Hematologic History: Reports: Anemia, B12 Deficiency, Blood Transfusion(s) - Infectious Disease History Infectious Disease History: Reports: Chicken Pox - Past Surgical History HEENT Surgical History: Reports: Naso-Sinus Surgery GI Surgical History: Reports: Bariatric Procedure, Cholecystectomy, EGD, Hernia Repair/Other, Other (See Below) Other GI Surgeries/Procedures: bowel blockage, REMOVAL OF HERNIA MESH REMOVAL Female Surgical History: Reports: Endometrial Ablation Social & Family History - Tobacco Use Smoking Status *Q: Unknown Ever Smoked - Caffeine Use Caffeine Use: Reports: None ED ROS GENERAL - Review of Systems Review Of Systems: See Below Constitutional: Reports: Fever, Chills HEENT: Reports: No Symptoms Respiratory: Reports: No Symptoms Cardiovascular: Reports: No Symptoms GI/Abdominal: Reports: Abdominal Pain, Flatus, Nausea. Denies: Constipation, Diarrhea, Vomiting : Reports: No Symptoms Musculoskeletal: Reports: No Symptoms Skin: Reports: No Symptoms Neurological: Reports: No Symptoms ED EXAM, GI/ABD - Physical Exam Exam: See Below Exam Limited By: No Limitations General Appearance: Alert, WD/WN, No Apparent Distress Eyes: Bilateral: Normal Appearance Head: Atraumatic, Normocephalic Neck: Normal Inspection, Supple, Non-Tender, Full Range of Motion Respiratory/Chest: No Respiratory Distress, Lungs Clear, Normal Breath Sounds, No Accessory Muscle Use Cardiovascular: Regular Rate, Rhythm, No Murmur GI/Abdominal Exam: Soft, No Organomegaly, No Distention, No Abnormal Bruit, Tender (Generalized), Other (Obese, warm to the touch) Back Exam: Normal Inspection, Full Range of Motion. No: CVA Tenderness (R), CVA Tenderness (L) Extremities: Normal Inspection, Normal Range of Motion, No Pedal Edema Course - Vital Signs Last Recorded V/S: Last Vital Signs Temp 100.0 F 04/12/18 21:17 Pulse 95 04/12/18 22:04 Resp 18 04/12/18 22:04 BP 122/63 04/12/18 22:04 Pulse Ox 98 04/12/18 22:04 - Orders/Labs/Meds Orders: Active Orders 24 hr Category Date Time Status Vital Signs [RC] Q1H Care 04/12/18 19:21 Active Abdomen Pelvis w Cont [CT] Stat Exams 04/12/18 20:28 Taken CULTURE BLOOD [BC] Urgent Lab 04/12/18 19:30 Received CULTURE BLOOD [BC] Urgent Lab 04/12/18 19:40 Received UA W/MICROSCOPIC [URIN] Urgent Lab 04/12/18 21:17 Ordered Lactated Ringers [Ringers, Lactated] 1,000 ml Med 04/12/18 19:30 Active IV ASDIRECTED Piperacillin/Tazobactam [Zosyn] 3.375 gm Med 04/12/18 20:30 Active Sodium Chloride 0.9% [Normal Saline] 50 ml IV Q6H Sodium Chloride 0.9% [Normal Saline] 100 ml Med 04/12/18 20:45 Active IV ASDIRECTED Blood Culture x2 Reflex Set [OM.PC] Urgent Oth 04/12/18 19:21 Ordered Medication Orders Lactated Ringer's (Ringers, Lactated) 1,000 mls @ 999 mls/hr IV ASDIRECTED JOYCE Last Admin: 04/12/18 19:33 Dose: 999 mls/hr Piperacillin Sod/Tazobactam (Sod 3.375 gm/ Sodium Chloride) 50 mls @ 100 mls/ hr IV Q6H PENDING SALE TO [facility] Last Admin: 04/12/18 20:38 Dose: 100 mls/hr Sodium Chloride (Normal Saline) 100 mls @ 3 mls/sec IV ASDIRECTED JOYCE Last Admin: 04/12/18 20:58 Dose: 3 mls/sec Labs: Laboratory Tests 04/12/18 04/12/18 04/12/18 Range/Units 19:21 19:40 19:40 WBC 10.9 (4.5-11.0) K/uL RBC 4.05 (3.30-5.50) M/uL Hgb 13.1 (12.0-15.0) g/dL Hct 38.8 (36.0-48.0) % MCV 96 (80-98) fL MCH 32 H (27-31) pg MCHC 34 (32-36) % Plt Count 267 (150-400) K/uL Neut % (Auto) 87 H (36-66) % Lymph % (Auto) 7 L (24-44) % Iron % (Auto) 4 (2-6) % Eos % (Auto) 2 (2-4) % Baso % (Auto) 0 (0-1) % Sodium 135 L (140-148) mmol/L Potassium 4.3 (3.6-5.2) mmol/L Chloride 100 (100-108) mmol/L Carbon Dioxide 23 (21-32) mmol/L Anion Gap 16.3 H (5.0-14.0) mmol/L BUN 7 (7-18) mg/dL Creatinine 1.0 (0.6-1.0) mg/dL Est Cr Clr Drug Dosing 74.40 mL/min Estimated GFR (MDRD) 59 L (>60) Glucose 121 H (74-106) mg/dL Lactic Acid 2.3 H (0.4-2.0) mmol/L Calcium 8.9 (8.5-10.1) mg/dL Total Bilirubin 0.5 (0.2-1.0) mg/dL AST 24 (15-37) U/L ALT 29 (12-78) U/L Alkaline Phosphatase 125 H (46-116) U/L C-Reactive Protein 5.69 H (0.0-0.3) mg/dL Total Protein 7.2 (6.4-8.2) g/dL Albumin 3.3 L (3.4-5.0) g/dL Globulin 3.9 H (2.3-3.5) g/dL Albumin/Globulin Ratio 0.9 L (1.2-2.2) Urine Color Urine Appearance Urine pH Ur Specific [place] Urine Protein Urine Glucose (UA) Urine Ketones Urine Occult Blood Urine Nitrite Urine Bilirubin Urine Urobilinogen Ur Leukocyte Esterase Urine RBC Urine WBC Ur Epithelial Cells Amorphous Sediment Urine Bacteria Urine Mucus Urine Other Urinalysis Comment 04/12/18 04/12/18 Range/Units 19:51 21:17 WBC (4.5-11.0) K/uL RBC (3.30-5.50) M/uL Hgb (12.0-15.0) g/dL Hct (36.0-48.0) % MCV (80-98) fL MCH (27-31) pg MCHC (32-36) % Plt Count (150-400) K/uL Neut % (Auto) (36-66) % Lymph % (Auto) (24-44) % Iron % (Auto) (2-6) % Eos % (Auto) (2-4) % Baso % (Auto) (0-1) % Sodium (140-148) mmol/L Potassium (3.6-5.2) mmol/L Chloride (100-108) mmol/L Carbon Dioxide (21-32) mmol/L Anion Gap (5.0-14.0) mmol/L BUN (7-18) mg/dL Creatinine (0.6-1.0) mg/dL Est Cr Clr Drug Dosing mL/min Estimated GFR (MDRD) (>60) Glucose (74-106) mg/dL Lactic Acid (0.4-2.0) mmol/L Calcium (8.5-10.1) mg/dL Total Bilirubin (0.2-1.0) mg/dL AST (15-37) U/L ALT (12-78) U/L Alkaline Phosphatase (46-116) U/L C-Reactive Protein (0.0-0.3) mg/dL Total Protein (6.4-8.2) g/dL Albumin (3.4-5.0) g/dL Globulin (2.3-3.5) g/dL Albumin/Globulin Ratio (1.2-2.2) Urine Color Cancelled Yellow Urine Appearance Cancelled Clear Urine pH Cancelled 7.0 Ur Specific [place] Cancelled 1.010 Urine Protein Cancelled Negative Urine Glucose (UA) Cancelled Normal Urine Ketones Cancelled Negative Urine Occult Blood Cancelled Negative Urine Nitrite Cancelled Negative Urine Bilirubin Cancelled Negative Urine Urobilinogen Cancelled Normal Ur Leukocyte Esterase Cancelled Negative Urine RBC Cancelled Not seen Urine WBC Cancelled 0-5 Ur Epithelial Cells Cancelled Rare Amorphous Sediment Cancelled Not seen Urine Bacteria Cancelled Rare Urine Mucus Cancelled Not seen Urine Other Cancelled Urinalysis Comment Cancelled Meds: Medications Generic Name Dose Route Start Last Admin Trade Name Freq PRN Reason Stop Dose Admin Lactated Ringer's 1,000 mls @ 999 mls/hr 04/12/18 19:30 04/12/18 19:33 Ringers, Lactated IV 999 mls/hr ASDIRECTED JOYCE Administration Piperacillin Sod/Tazobactam 50 mls @ 100 mls/hr 04/12/18 20:30 04/12/18 20:38 Sod 3.375 gm/ Sodium Chloride IV 100 mls/hr Q6H JOYCE Administration Sodium Chloride 100 mls @ 3 mls/sec 04/12/18 20:45 04/12/18 20:58 Normal Saline IV 3 mls/sec ASDIRECTED JOYCE Administration Discontinued Medications Generic Name Dose Route Start Last Admin Trade Name Freq PRN Reason Stop Dose Admin Acetaminophen 650 mg 04/12/18 19:22 04/12/18 19:33 Tylenol PO 04/12/18 19:23 650 mg NOW ONE Administration Iopamidol 150 ml 04/12/18 20:45 04/12/18 20:58 Isovue-300 (61%) IV 150 ml . DIRECTED JOYCE Administration Departure - Departure Time of Disposition: 22:50 Disposition: DC/Tfer to Acute Hospital 02 Condition: Fair Clinical Impression: Abdominal wall abscess - Discharge Information Referrals: Codey Reddy MD [Primary Care Provider] - Forms: ED Department Discharge - My Orders Last 24 Hours: My Active Orders 04/12/18 19:21 Vital Signs [RC] Q1H Blood Culture x2 Reflex Set [OM.PC] Urgent 04/12/18 19:30 CULTURE BLOOD [BC] Urgent Lactated Ringers [Ringers, Lactated] 1,000 ml IV ASDIRECTED 04/12/18 19:40 CULTURE BLOOD [BC] Urgent 04/12/18 20:28 Abdomen Pelvis w Cont [CT] Stat 04/12/18 20:30 Piperacillin/Tazobactam [Zosyn] 3.375 gm Sodium Chloride 0.9% [Normal Saline] 50 ml IV Q6H 04/12/18 20:45 Sodium Chloride 0.9% [Normal Saline] 100 ml IV ASDIRECTED 04/12/18 21:17 UA W/MICROSCOPIC [URIN] Urgent - Assessment/Plan Last 24 Hours: My Active Orders 04/12/18 19:21 Vital Signs [RC] Q1H Blood Culture x2 Reflex Set [OM.PC] Urgent 04/12/18 19:30 CULTURE BLOOD [BC] Urgent Lactated Ringers [Ringers, Lactated] 1,000 ml IV ASDIRECTED 04/12/18 19:40 CULTURE BLOOD [BC] Urgent 04/12/18 20:28 Abdomen Pelvis w Cont [CT] Stat 04/12/18 20:30 Piperacillin/Tazobactam [Zosyn] 3.375 gm Sodium Chloride 0.9% [Normal Saline] 50 ml IV Q6H 04/12/18 20:45 Sodium Chloride 0.9% [Normal Saline] 100 ml IV ASDIRECTED 04/12/18 21:17 UA W/MICROSCOPIC [URIN] Urgent Plan: Assessment Acuity = acute Site and laterality = abdominal wall abscess Etiology = suspicious for bacterial cause Manifestations = fever Location of injury = Home Lab values = lactic acid slightly elevated 2.3 consistent lactic acidosis, CBC and CMP unremarkable urinalysis negative CT scan described an abscess 5.7 x 3 cm Plan: Called and discussed the case [facility] general surgery Dr. Wu kindly accepted the patient in transport she'll be transported via private vehicle she has received 1 dose of Zosyn IV IV will be left in place This note was dictated using [employer] voice recognition software please call with any questions on syntax or grammar.
[2018-04-12] MEDS ORDERED: Lactated Ringers 1,000 ML IV SCH (19:30)
[2018-04-12] MEDS ORDERED: Piperacillin/Tazobactam 3.375 GM in Sodium Chloride 0.9% 50 ML IV SCH (20:30)
[2018-04-12] MEDS ORDERED: Sodium Chloride 0.9% 100 ML IV SCH (20:45)
[2018-04-12] MEDS ORDERED: Iopamidol 612 MG/ML 150 ML Bottle IV SCH (20:45)
[2018-04-12 22:05] VITALS: BP 122/63
[2018-04-12] MEDS ORDERED: Ondansetron 4 MG/2 ML SDV IVPUSH ONE (22:53)
== END 2018-04-13 00:19 ==
LOC: JP.ED 18:33
DX: L02.211 Cutaneous abscess of abdominal wall (principal); Z79.899 Other long term (current) drug therapy
CPT/HCPCS: 36415; 74177; 80053; 81001; 83605; 85025; 86140; 87040; 96361; 96365; 96375; 99285; A9270; J2405; J2543; J7030; J7050; J7120